=== PATIENT | female | born 1975 | race Caucasian/White ===

== ENCOUNTER 2019-07-13 22:42 | Emergency (ER) | payer OTHER ==
[~2019-07-13] VITALS: Ht 172.7 cm; Wt 70.3 kg
[2019-07-13 22:55] VITALS: BP 113/63
[2019-07-13 23:38] LABS: APPEARANCE,URINE CLOUDY (CLEAR); BILIRUBIN,URINE 1+ (NEGATIVE); BLOOD, URINE 3+ (NEGATIVE); COLOR,URINE DARK YELLOW (YELLOW); LEUKOCYTE ESTERASE ,URINE 2+ (NEGATIVE); NITRITE, URINE NEGATIVE (NEGATIVE); UGLUCOSE NEGATIVE (NEGATIVE)
[2019-07-13 23:49] LABS: RBC,URINE TOO NUMEROUS TO COUN /HPF (0-5); WBC,URINE 80-100 /HPF (0-5)
[2019-07-13] MEDS ORDERED: cefTRIAXone 1,000 MG in LIDOCAINE MPF 1% - 5 mL VIAL 2.1 ML IM ONE (23:55)
[2019-07-14 00:30] VITALS: BP 122/67
== END 2019-07-14 00:30 | disposition home or self-care (01) ==
LOC: MED 22:42
DX: N39.0 Urinary tract infection, site not specified (principal); R31.9 Hematuria, unspecified
CPT/HCPCS: 81001; 87086; 87186; 96372; 99283; J0696; J2001

== ENCOUNTER 2021-09-29 13:33 | Emergency (ER) | payer OTHER ==
[~2021-09-29] VITALS: Ht 170.2 cm; Wt 72.7 kg
[2021-09-29 13:59] VITALS: BP 113/62
--- NOTE | 2021-09-29 15:41 | NUR ---
KATIE MCDONOUGH AT BEDSIDE.
[2021-09-29] MEDS ORDERED: SULF-59 PO (15:50)
[2021-09-29] MEDS ORDERED: ACET-10509 PO (15:50)
[2021-09-29 15:59] VITALS: BP 113/62
--- NOTE | 2021-09-29 16:02 | NUR ---
45 Y/O FEMALE BIB SELF C/O LOWER ABDOMINAL PAIN 06/17 DESCRIBES CRAMPING, PAINFUL URINATION, HEMATURIA X TODAY. DENIES N/V/D, DENIES FEVER/CHILLS. DENIES PMH NKA
--- NOTE | 2021-09-29 16:11 | NUR ---
Patient discharged with v/s stable. Written and verbal after care instructions given UTI AND HEMATURIA and explained. Patient alert, oriented and verbalized understanding of instructions. Ambulatory with steady gait. All questions addressed prior to discharge. ID band removed. Patient advised to follow up with PMD. Rx of BACTRIM, TYNENOL given. Patient educated on indication of medication including possible reaction and side effects. Opportunity to ask questions provided and answered.
--- NOTE | 2021-09-29 18:04 | NUR ---
The patient's care was reviewed and supervised by Claudia Connors RN.
== END 2021-09-29 16:46 | disposition home or self-care (01) ==
LOC: MED 13:33
DX: N39.0 Urinary tract infection, site not specified (principal); R31.9 Hematuria, unspecified; Z90.49 Acquired absence of other specified parts of digestive tract; Z98.890 Other specified postprocedural states
CPT/HCPCS: 81002; 81025; 99283